=== PATIENT | male | born 1945 | race Caucasian/White ===

== ENCOUNTER → 2016-04-01 | Day surgery (SDC) | payer MEDICARE, MEDICAID ==
--- NOTE | 2016-03-26 16:40 | HP ---
DATE OF ADMISSION: 04/01/2016. AGE: 71-year-old male. ADMITTING DIAGNOSES: 1. Gross hematuria. 2. Bladder calculi. PLANNED PROCEDURE: Cystoscopy fragmentation and removal of bladder calculi, possible laser lithotripsy of bladder calculi, left retrograde, possible left ureteroscopy. SURGEON: Dr. Gomes. HISTORY OF PRESENT ILLNESS: Hugo David is a 71-year-old former smoker who had been evaluated for painless gross hematuria while he was on Brilinta. Cystoscopy revealed a markedly enlarged prostate and multiple bladder calculi. He was started on Flomax and a CT urogram was obtained. This revealed narrowing and thickening of the distal left ureter. He is now being brought in for management of the bladder calculi and further evaluation of the abnormality involving the left ureter. I did not obtain urine cytologies as I suspected that these would be abnormal secondary to the multiple bladder calculi. PAST MEDICAL HISTORY: Significant for coronary artery disease and high cholesterol. PAST SURGICAL HISTORY: Significant for a tonsillectomy. MEDICATIONS ON ADMISSION: 1. Atorvastatin 40 mg a day. 2. Aspirin 81 mg a day. ALLERGIES: No known drug allergies. SOCIAL HISTORY: He is a former smoker who quit about 40 years ago with a ten pack history of smoking prior to that. PHYSICAL EXAMINATION GENERAL: Pleasant, healthy-appearing gentleman. VITAL SIGNS: Blood pressure 140/82, pulse 65 per minute, oxygen saturation 99 percent on room air. CARDIOVASCULAR: Regular rate and rhythm. S1, S2. LUNGS: Clear bilaterally. ABDOMEN: Soft without masses. IMPRESSION: Dupbqyk-hfqfl-uzck-old gentleman with multiple bladder calculi and abnormality of the left distal ureter noted on CT scan. PLAN: Cystoscopy fragmentation and removal of bladder calculi, possible laser and for left retrograde, possible left ureteroscopy. CC: Dr. Martin Azevedo; Dr. Alyssa Finn * [id number]/[facility] #: [id number] [facility]
[~2016-04-01] MED LIST: Buffered Lidocaine 1% SYR 3ML* 3 ML/SYR SYRINGE INTRADERM ONE; Buffered Lidocaine 1% SYR 3ML* 3 ML/SYR SYRINGE ONE; Dexamethasone IV* 4 MG/ML 1 ML (4 MG) IV SLOW PU ONE; Dexamethasone IV* 4 MG/ML 1 ML (4 MG) ONE; Famotidine IV* 10 MG/ML 2 ML (20 mg) IV ONE; Famotidine IV* 10 MG/ML 2 ML (20 mg) ONE; Furosemide IV* 10 MG/ML 2 ML VIAL (20 MG) ONE; Gentamicin ADULT (*) 160 MG in NS 0.9% 100 ML* 100 ML IVPB ONE; HYDROcodone/ACETAMIN 5-325 MG* 1 TAB PO PRN; Iohexol 180 (CONTRAST) 10 ML SDV IV ONE; Lidocaine 2% JELLY* 6 ML JELLY TOPICAL ONE; Lidocaine 2% MPF* 2 ML VIAL ONE; Midazolam* 1 MG/ML 2 ML VIAL (2 MG) ONE; Ondansetron INJ* 2 MG/ML VIAL ONE; PROCHLORPERAZINE INJ 5 MG/ML 2 ML VIAL IV PRN; Phenylephrine IV* 40 MCG/ML 10 ML SYRINGE ONE; Propofol* 10 MG/ML 20 ML BTL IV PUSH ONE; cefTRIAXone(*) 2 GM ADDV.VIAL IVPB ONE; fentaNYL* 50 MCG/ML 2 ML VIAL (100 MCG VIAL) IV PRN; fentaNYL* 50 MCG/ML 2 ML VIAL (100 MCG VIAL) ONE; oxyCODONE/Acetamin 5/325 MG* TAB ONE
--- NOTE | 2016-04-01 09:13 | RAD ---
INDICATION: Bilateral retrograde pyelogram. COMPARISON: Comparison is made with a prior CT urogram from February 16, 2016. TECHNIQUE: 16 seconds of intermittent fluoroscopic guidance were provided and 23 spot films of the abdomen were obtained on both the right and left sides. FINDINGS: There is opacification of both ureters and proximal collecting systems. There are small intraluminal filling defects noted within both ureters which appear to represent air bubbles. The ureters appear smooth in outline and normal in caliber. No intraluminal filling defect is seen within the calyces. IMPRESSION: NEGATIVE EXAM. CPT II Codes: 6045F
[2016-04-01 10:55] VITALS: BP 99/72
--- NOTE | 2016-04-02 07:54 | OP ---
DATE OF OPERATION: 04/01/16 - SDS DATE OF : [birth year] - AGE: 71 years, Male. SURGEON: Jose Gomes MD ANESTHESIOLOGIST: Dr. Fritz. ANESTHESIA: General. PRE-OP DIAGNOSES: 1. Hematuria. 2. Bladder calculi. 3. Prostate enlargement. POST-OP DIAGNOSES: 1. Hematuria. 2. Bladder calculi. 3. Prostate enlargement. OPERATIVE PROCEDURES: 1. Cystoscopy. 2. Laser lithotripsy. 3. Fragmentation and removal of multiple bladder calculi. 4. Bilateral retrograde pyelogram. COMPLICATIONS: None. OPERATIVE FINDINGS: 1. Normal-appearing urethra. 2. Dkdn-lj-mezokblvln enlarged prostate, predominantly median lobe enlargement. 3. Multiple bladder calculi (2 of them fairly large, 4 cm to 5 cm each). 4. Normal bilateral retrograde pyelogram. POSTOPERATIVE CONDITION: Stable. INDICATIONS: Hugo David is a 71-year-old gentleman with a history of hematuria. He was noted to have bladder calculi. CT scan had raised an issue about incomplete visualization of the left distal ureter. He also had been complaining of some right flank pain, so the plan was changed to do bilateral retrograde pyelogram at the time of treatment of the bladder calculi. DESCRIPTION OF PROCEDURE: After induction of general anesthesia, the patient was placed in dorsal lithotomy position. Sequential compression devices were in place and functioning. Initial cystoscopy revealed a normal-appearing urethra, mild-to- moderate enlargement of the prostate, predominantly median lobe. The bladder was examined. The right and left ureteral orifices were normal in position and configuration. Right retrograde pyelogram revealed no evidence of any persistent filling defect (some small air bubbles were noted) and no evidence of obstruction. Left retrograde pyelogram also was normal and there was drainage of contrast noted from both collecting systems after the completion of the pyelograms. Next, attention was directed to the bladder calculi. There were two very large bladder calculi and one additional smaller one. Using a 1000 micron Holmium Laser Fiber, the two large calculi were fragmented with laser lithotripsy. Next , the stone crushing forceps were introduced and all of these stones were then broken up into much smaller fragments. The fragments were removed using [facility] evacuator. At the end of the procedure, there were no remaining fragments noted. There was no evidence of any injury to the bladder and a 20-Nepali Alvarez catheter was introduced without difficulty and connected to a drainage bag. The patient tolerated the procedure satisfactorily and was transferred back to recovery area in stable condition. CC: Dr. Martin Azevedo * [id number]/[facility] #: [id number] MTDD
== END | disposition home or self-care (01) ==
LOC: OR 06:23
PROVIDERS: ATTEND Urology
DX: N21.0 Calculus in bladder (principal); R31.9 Hematuria, unspecified; N40.0 Benign prostatic hyperplasia without lower urinary tract symptoms; Z87.891 Personal history of nicotine dependence; I25.10 Atherosclerotic heart disease of native coronary artery without angina pectoris; E78.5 Hyperlipidemia, unspecified
CPT/HCPCS: 74420; 82365; 88300; A9270-GY; J0696; J1100; J1580; J1940; J2250; J2405; J2704; J3010

== ENCOUNTER 2016-04-29 10:16 | Emergency (ER) | payer MEDICAID, MEDICARE ==
[2016-04-29 10:39] VITALS: BP 124/72
--- NOTE | 2016-04-29 12:19 | RAD ---
HISTORY: Cough, wheezing COMPARISONS: None VIEWS: 2: Frontal dual-energy and lateral views of the chest. FINDINGS: CARDIOMEDIASTINAL SILHOUETTE: The cardiomediastinal silhouette is normal. ASHIA: The ashia are normal. PLEURA: The costophrenic angles are sharp. No pleural abnormalities are noted. LUNG PARENCHYMA: The lungs are clear. ABDOMEN: The upper abdomen is clear. There is no subphrenic gas. BONES AND SOFT TISSUES: No bone or soft tissue abnormalities are noted. OTHER: None. IMPRESSION: NO ACTIVE CARDIOPULMONARY DISEASE.
--- NOTE | 2016-04-29 12:33 | UC ---
Respiratory Complaint HPI - HPI Summary HPI Summary: SIX DAYS OF PRODUCTIVE COUGH CHEST CONGESTION. SEEMS TO BE WORSENING WITH OCCASIONAL WHEEZES. FATIGUE. NO FEVER. NO ST. NO CHEST PAIN. NO SOB. - History of Current Complaint Chief Complaint: UCRespiratory Stated Complaint: URI Time Seen by Provider: 04/29/16 11:24 Hx Obtained From: Patient Onset/Duration: Gradual Onset, Lasting Days, Worse Since - TODAY Severity Initially: Mild Severity Currently: Moderate Character: Cough: Productive Aggravating Factors: Deep Breaths, Recumbent Position Associated Signs And Symptoms: Positive: Wheezing, URI, Nasal Congestion. Negative: Fever, Chills, Pleuritic Chest Pain, Hemoptysis, Dizziness, Calf Pain , Calf Swelling, Edema, Hoarseness, Sinus Discomfort - Allergies/Home Medications Allergies/Adverse Reactions: Allergies Allergy/AdvReac Type Severity Reaction Status Date / Time No Known Drug Allergy Allergy none Verified 04/01/16 07:05 Home Medications: Home Medications Atorvastatin* [Lipitor*] 40 mg PO DAILY 04/29/16 [History Confirmed 04/29/16] PMH/Surg Hx/FS Hx/Imm Hx Previously Healthy: Yes Endocrine History Of: Denies: Diabetes, Thyroid Disease Cardiovascular History Of: Reports: Cardiac Disorders - 2 stents placed 2010, 2014 Denies: Hypertension Respiratory History Of: Denies: COPD, Asthma GI/ History Of: Reports: Kidney Stones - pending surgery Denies: Ulcer - Surgical History Surgical History: Yes Surgery Procedure, Year, and Place: past cardiac stents, rca X 2. tonsillectomy at 10 years old. varacose vein removal at age 17 - Family History Known Family History: Negative: Respiratory Disease - Social History Occupation: Retired Lives: With Family Alcohol Use: Weekly Alcohol Amount: 2 beers a couple times a week Substance Use Type: None Smoking Status (MU): Former Smoker When Did the Patient Quit Smoking/Using Tobacco: 60 years ago - Immunization History Most Recent Influenza Vaccination: last year Most Recent Tetanus Shot: 5 years ago Most Recent Pneumonia Vaccination: 1-2 years ago Review of Systems Constitutional: Negative Skin: Negative Eyes: Negative ENT: Negative Respiratory: Cough Cardiovascular: Negative Gastrointestinal: Negative Genitourinary: Negative Motor: Negative Neurovascular: Negative Musculoskeletal: Negative Neurological: Negative Psychological: Negative All Other Systems Reviewed And Are Negative: Yes Physical Exam Triage Information Reviewed: Yes Appearance: Well-Appearing, No Pain Distress, Well-Nourished Vital Signs: Initial Vital Signs Temp 99.0 F 04/29/16 10:33 Pulse 83 04/29/16 10:33 Resp 18 04/29/16 10:33 BP 124/72 04/29/16 10:33 Pulse Ox 100 04/29/16 10:33 Vital Signs Reviewed: Yes Eye Exam: Normal Eyes: Positive: Conjunctiva Clear ENT: Positive: Hearing grossly normal, Pharynx normal, TM dull Dental Exam: Normal Neck exam: Normal Neck: Positive: Supple, Nontender, No Lymphadenopathy Respiratory: Positive: Chest non-tender, No respiratory distress, No accessory muscle use, Wheezing - SCANT. Negative: Respiratory distress, Decreased breath sounds Cardiovascular Exam: Normal Cardiovascular: Positive: RRR, No Murmur, Pulses Normal, Brisk Capillary Refill Abdominal Exam: Normal Abdomen Description: Positive: Nontender, No Organomegaly Musculoskeletal Exam: Normal Musculoskeletal: Positive: Strength Intact, ROM Intact, No Edema Neurological Exam: Normal Psychological Exam: Normal Skin Exam: Normal UC Diagnostic Evaluation - Laboratory O2 Sat by Pulse Oximetry: 100 Respiratory Course/Dx - Differential Dx/Diagnosis Differential Diagnosis/HQI/PQRI: Laryngitis, Sinusitis, Tuberculosis Provider Diagnoses: BRONCHITIS WITH BRONCHOSPASM Discharge - Discharge Plan Condition: Stable Disposition: HOME Prescriptions: Albuterol HFA INHALER* [Ventolin HFA Inhaler*] 1 - 2 puff INH Q6H PRN #1 mdi PRN Reason: Wheezing Azithromycin TAB* [Zithromax TAB (Z-YO) 250 mg #6 tabs] 250 mg PO DAILY #6 tab Patient Education Materials: Acute Bronchitis (ED), Bronchospasm (ED) Referrals: [facility] [Outside] No Primary Care Phys,NOPCP [Primary Care Provider] -
== END 2016-04-29 12:46 | disposition home or self-care (01) ==
LOC: UCEAST 10:16
DX: J20.9 Acute bronchitis, unspecified (principal); Z87.891 Personal history of nicotine dependence
CPT/HCPCS: 71020; 99212; G0463

== ENCOUNTER 2016-11-06 10:56 | Observation (INO) | payer MEDICARE, MEDICAID ==
[2016-11-06 11:46] LABS: Hematocrit 42 % (42-52); Hemoglobin 14.4 g/dl (14.0-18.0); Mean Corpuscular HGB Conc 34 g/dl (31-36); Mean Corpuscular Hemoglobin 32 pg (27-31); Mean Corpuscular Volume 93 fL (80-94); Mean Platelet Volume 8 um3 (7.4-10.4); Red Blood Count 4.52 10^6/ul (4.0-5.4); Red Cell Distribution Width 13 % (10.5-15); White Blood Count 5.2 10^3/ul (3.5-10.8)
[2016-11-06 11:53] LABS: Ammonia 44 mol/L (16-53)
[2016-11-06 11:57] LABS: ALT 23 U/L (7-52); AST 22 U/L (13-39); Albumin 3.8 g/dL (3.2-5.2); Alkaline Phosphatase 71 U/L (34-104); Anion Gap 5 mmol/L (2-11); BUN/Creatinine Ratio 22.5 (8-20); Blood Urea Nitrogen 16 mg/dL (6-24); C Reactive Protein < 1.00 mg/L (< 5.00); CO2 Carbon Dioxide 25 mmol/L (22-32); Chloride 106 mmol/L (101-111); Creatine Kinase 92 U/L (10-223); EGFR African American 139.9 (>60); EGFR Non-African American 108.8 (>60); Globulin 3.5 g/dL (2-4); Glucose 145 mg/dL (70-100); Lipase 29 U/L (11.0-82.0); Sodium 136 mmol/L (133-145); Total Protein 7.3 g/dL (6.4-8.9)
[2016-11-06 11:59] LABS: B Type Natriuretic Peptide 69 pg/mL
--- NOTE | 2016-11-06 12:01 | RAD ---
HISTORY: Slurred speech COMPARISONS: April 29, 2016 VIEWS:1: Single frontal portable view of the chest at 11:38 AM FINDINGS: LINES AND TUBES: None. CARDIOMEDIASTINAL SILHOUETTE: The cardiomediastinal silhouette is normal for portable technique. PLEURA: The costophrenic angles are sharp. No pleural abnormalities are noted. LUNG PARENCHYMA: There is hyperinflation. ABDOMEN: The upper abdomen is clear. There is no subphrenic gas. BONES AND SOFT TISSUES: No bone or soft tissue abnormalities are noted. IMPRESSION: HYPERINFLATION. NO ACTIVE CARDIOPULMONARY DISEASE.
[2016-11-06 12:03] LABS: TSH (Thyroid Stimulating Horm) 1.08 mcIU/mL (0.34-5.60)
[2016-11-06] MEDS: NS 0.9% 1000 ML* 1,000 ML IV SCH ×2 (12:26→19:16)
--- NOTE | 2016-11-06 12:40 | RAD ---
HISTORY: Slurred speech, off balance COMPARISONS: None TECHNIQUE: Multiple contiguous axial CT scans were obtained of the head without intravenous contrast. FINDINGS: HEMORRHAGE/INFARCT: There is no hemorrhage or acute infarct. MASSES/SHIFT: There is no mass or shift. EXTRA-AXIAL SPACES: There are no extra-axial fluid collections. SULCI AND VENTRICLES: The sulci and ventricles are normal in size and position for the patient's stated age. CEREBRUM: There are no focal parenchymal abnormalities. BRAINSTEM: There are no focal parenchymal abnormalities. CEREBELLUM: There are no focal parenchymal abnormalities. VESSELS: The vessels are grossly normal. PARANASAL SINUSES: The paranasal sinuses are clear. ORBITS: The orbits are unremarkable. BONES AND SOFT TISSUE: No bone or soft tissue abnormalities are noted. OTHER: None IMPRESSION: NO ACUTE INTRACRANIAL PATHOLOGY.
[2016-11-06 13:36] LABS: Urine Bilirubin Negative (Negative); Urine Glucose Negative (Negative); Urine Nitrite Negative (Negative)
[2016-11-06] MEDS ORDERED: Gadoteridol* (CONTRAST) 279.3 MG/ML 10 ML IV ONE (15:24)
--- NOTE | 2016-11-06 16:18 | RAD ---
Indication: Dysarthria, spastic slurred speech. Image sequences: Sagittal and axial T1, axial T2, FLAIR, diffusion and susceptibility weighted images of the brain were obtained. 15 mL of ProHance was injected and postcontrast sagittal, axial and coronal T1-weighted images were repeated. Ventricular structures are midline. No midline shift is noted. The extra-axial spaces are unremarkable. Diffusion-weighted images demonstrates no restriction of diffusion. The FLAIR images demonstrates no definite vasogenic edema. Cerebellopontine angles are unremarkable. No abnormally enhancing masses are noted. Susceptibility weighted images demonstrates no evidence of susceptibility artifact. No abnormally enhancing lesions are identified. The orbits, optic chiasm, posterior fossa and sella turcica are grossly unremarkable. IMPRESSION: No restriction of diffusion. No abnormally enhancing lesions are identified.
[2016-11-06] MEDS ORDERED: Acetaminophen TAB* 325 MG PO PRN (17:37)
--- NOTE | 2016-11-06 17:38 | CONS ---
NEUROLOGY CONSULTATION: DATE OF CONSULTATION: 11/06/16 REFERRING PHYSICIAN: Mike Wolfe MD PRIMARY CARE PROVIDER: Channing Carmona MD LOCATION: He is in the emergency room. CHIEF COMPLAINT: Slurred speech, dizziness, difficulty walking. HISTORY OF PRESENT ILLNESS: Hugo David is a 71-year-old right-handed man who was ill last April with a possible sinus infection with a headache and a fever. That was treated and it resolved. Since that time, he has noted that his speech is slurred. It is gradually worsened over the months and particularly over the last 2 to 4 weeks. He is accompanied by his friend, Lara , who provides additional history. He started to feel "dizzy" perhaps a couple of months ago, but certainly by 1 month ago. If he would note if he would lie in his left side, he feels like he is falling. If he moved his head, he feels like things were mildly spinning. He has not had any falls. He finds his gait is deteriorated particularly in the last 2 to 4 weeks. He feels unsteady on his feet. He has noted with specific question occasionally difficulty swallowing. He has not had any choking spells or falls. He does not have any headache, neck pain, or pain in his limbs other than stiffness in his hands. He does not note any numbness or tingling in his limbs or face. He has not had an intestinal problems or change in weight. He has not noticed any muscle cramps. He notes a little bit of tingling in the back of his thighs and his hamstrings. He feels extremely tired. He feels that he needs more sleep. He has not had any change in his vision, specifically no double vision. PAST MEDICAL HISTORY: His past medical history is notable for coronary artery disease requiring stent in 2015. He has had bladder stones, which were surgically removed earlier this year before he had the febrile illness. He has a history of gout, which was treated in the past. MEDICATIONS: At home consisted of: 1. Several supplements including vitamin B complex and vitamin B12. 2. Aspirin 81 mg p.o. daily. 3. Zinc 50 mg p.o. daily. 4. Niacin 500 mg p.o. daily. 5. Atorvastatin 40 mg p.o. daily. ALLERGIES: He does not have any allergies to medications. 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 He does not smoke. He drinks about 3 beers per week, but less in the last month or so. FAMILY HISTORY: Notable for longevity in his parents. Neither one had any problems with tremor or ataxia or other neurodegenerative disorders. His siblings also are apparently pretty healthy as best as he knows. PHYSICAL EXAMINATION: He is well nourished and well hydrated. Temperature is 98.1 temporally, blood pressure running about 110/70, heart rate is in the 60s and high 50s on the monitor, sinus. Respiratory rate is 14 and oxygen saturation is 98% on room air. Lungs are clear to auscultation. Heart is in a regular rate and rhythm without murmurs. Carotid pulses are intact and there are no anterior, posterior, cervical bruits. There is no thyromegaly to palpation. On neurologic exam, pupils react equally from 4 to 2.5 mm. Eye movements are normal, no nystagmus. Funduscopic exam revealed sharp discs bilaterally and no abnormalities noted. There is no ptosis. Visual corral are full to confrontation. Facial musculature is symmetric, perhaps with slightly decreased eye blink. Palate and tongue are notable for some tongue fasciculations seen after movement, but not persistently. Tongue protrudes in the midline. He has moderate mainly lingual dysarthria. Palate rises symmetrically and gag response is brisk. Facial sensation to light touch is reported as less on the left side but facial sensation to pin is reported as symmetric on both sides. Hearing is intact to tuning fork and Leon test lateralizes to the left. There is a little bit of cerumen in each ear canal, but neither one are occluded. Neck muscle bulk and strength is normal. Motor exam reveals increased muscle tone in the left leg and to a lesser extent the right. There is also mild increased muscle tone in the forearms, worse on the left. There is no cogwheeling. Strength is limited in the right shoulder because of an old rotator cuff injury, but otherwise he has normal strength proximally and distally in the upper extremities. There is no scapular winging. In the lower extremities, he has grade 4 to 4+ right hip flexor weakness. He has normal strength in the lower extremities otherwise. On sensory exam, there is diminished light touch in the toes. There is diminished vibration in the toes bilaterally, worse on the left. Proprioceptive sensation is diminished on the left great toe, but not the right. Pin discrimination is normal at all limbs. Reflexes of biceps 3/2, brachioradialis 3/2, knees 3/3, there are crossed adductor responses bilaterally. Ankle reflexes are trace bilaterally and plantar responses are flexor bilaterally. Finger taps are slow and clumsy in the right hand. Finger taps seemed normal on the left. Ctra-wu-ehpt is clumsy in the right. Sepg-vt-pgvj is a little bit clumsy on the left but not clearly abnormally so. Gait is stiff legged. He takes multiple steps to turn. He ambulates independently. LABORATORY DATA/DIAGNOSTIC STUDIES: Includes a CT of the brain interpreted as normal. I have reviewed the images and I agree. Other laboratory studies notable for normal CBC, normal INR and PTT, normal chemistry profile other than a nonfasting glucose of 145. He had an ammonia level drawn this admission normal at 44, creatine kinase normal at 92. He had labs drawn on 10/30/[address] Carmona notable for normal vitamin B12 at 414, folate greater than 20, TSH 1.08. Lyme disease serology negative on 10/30/16. Urinalysis is unremarkable. IMPRESSION: Mr. David presents with mainly upper neuron findings but he also describes some vestibular symptoms and he has evidence of some weakness on exam as well. His right hip flexor seems weak and his right shoulder is weak, but that is associated with an old rotator cuff tear. He has very brisk reflexes diffusely, but plantars are flexor. He has some sensory loss in his feet, but may be diabetic since he has had multiple elevated blood sugars in prior lab studies in the computer. He needs an MRI of his brain with and without contrast to look for meningeal carcinomatosis or other posterior fossa lesions. He needs some additional blood work to include JAMES and serum protein electrophoresis. If the MRI of the brain is negative, he probably can be discharged home for further outpatient workup. If it does show meningeal abnormalities then a spinal tap for cytology should be done. Further recommendations depend upon the results of the studies. [id number]/[facility] #: [id number] [facility]
[2016-11-06 18:53] LABS: Free T3 2.9 pg/mL (2.5-3.9)
[2016-11-06 18:56] LABS: Free T4 0.74 ng/dL (0.61-1.12)
[2016-11-06] MEDS: Senna TAB PO SCH (20:45)
[2016-11-07] MEDS: Senna TAB PO SCH (08:31)
[2016-11-07 11:48] LABS: CSF Glucose 84 mg/dL (40-70)
[2016-11-07 12:01] LABS: BF RBC Count #1 0; BF RBC Count #2 0; BF WBC Count #1 1; BF WBC Count #2 1; Body Fluid Appearance Clear; Body Fluid WBC 1 /mcL; RBC counts within 6%? Yes; WBC counts within 15%? Yes
[2016-11-07 12:50] LABS: Body Fluid Total Cells Counted 20
--- NOTE | 2016-11-07 14:53 | CONS ---
NEUROLOGY FOLLOWUP NOTE: DATE OF FOLLOWUP: 11/07/16 LOCATION: He is an inpatient in room 453. HOSPITALIST: Dr. Rosen CHIEF COMPLAINT: Slurred speech, weakness. INTERVAL HISTORY: Since yesterday, Mr. David feels the same. He had a lumbar puncture earlier today. Results back so far include cell counts with 1 white cell and 0 red cells with 50% lymphocytes and 50% monocytes on differential. Glucose is elevated at 84 and protein is elevated at 58. Medications were reviewed and he is on acetaminophen and Senokot. Not on any other medications. He has been afebrile throughout his stay. Oxygen saturations have remained in excess of 95% and blood pressures running 120/70. On exam, he has a mild spastic catch in both legs. He has good strength other than mild right hip flexor weakness in the grade 4+ range. Speech remains dysarthric. EMG nerve conduction testing was done today and reveals a mild sensorimotor polyneuropathy. There is also some chronic denervation in the left L4 distribution, but no signs of recent denervation nor other features suggestive of motor neuron disease. Other laboratory data recently include a normal free T4 and free T3, CRP normal at less than 1, sedimentation rate 12. Thyroid peroxidase antibodies are negative. There are numerous other tests pending. I am not sure of the etiology of Mr. David's dysarthria, but I am concerned he may have early motor neuron disease. He has a number of blood tests and spinal fluid tests pending including paraneoplastic antibodies and connective tissue disorders. I would like to get an MRI of his cervical spine before we discharge him home today and then ultimately follow up in my office. If the etiology remains unclear, at that point, I may consider referal to the neuromuscular unit at [facility]. [id number]/[facility] #: [id number] NIKA
--- NOTE | 2016-11-07 15:16 | RAD ---
HISTORY: Slurred speech, dizziness loss of balance COMPARISONS: None TECHNIQUE: The following sequences were obtained of the cervical spine: Sagittal T1- and T2-weighted images, sagittal STIR images, axial T2 and gradient echo images. FINDINGS: BRAIN AND SPINAL CORD: The visualized spinal cord is normal in caliber, position, and signal intensity. The visualized portion of the brain is unremarkable. The cerebellar tonsils are normal in position. ALIGNMENT: There is straightening of the normal cervical lordosis. The alignment is otherwise normal. VERTEBRAL BODIES: There is multilevel anterolateral marginal osteophyte formation. JOINTS: There is diffuse uncovertebral and facet osteoarthritic change MUSCULATURE: Normal INTERVERTEBRAL DISCS: There is diffuse loss of intervertebral disc height and T2 signal throughout the spine. AXIAL IMAGES: C2-C3: There is bilateral uncovertebral and facet hypertrophy. There is moderate to severe bilateral neural foraminal narrowing. There is no significant central canal stenosis. C3-C4: There is bilateral uncovertebral and facet hypertrophy. There is severe left and moderate right neural foraminal narrowing. There is mild narrowing of central canal. C4-C5: There is bilateral uncovertebral and facet hypertrophy. There is severe bilateral neural foraminal narrowing. There is mild narrowing of the central canal. C5-C6: There is bilateral uncovertebral and facet hypertrophy. There is severe bilateral neural foraminal narrowing. There is mild narrowing of central canal. C6-C7: There is a broad-based discussed effect complex with bilateral uncovertebral and facet hypertrophy. There is severe bilateral neural foraminal narrowing. There is moderate narrowing of the central canal. C7-T1: There is bilateral facet hypertrophy. There is moderate bilateral neural foraminal narrowing. SOFT TISSUES: The visualized soft tissues of the neck are unremarkable. OTHER: None. IMPRESSION: 1. DEGENERATIVE DISC DISEASE AND OSTEOARTHRITIS. 2. THERE IS MODERATE NARROWING OF THE CENTRAL CANAL AT C6-C7 WITH MILD NARROWING AT C3-C4, C4-C5, AND C5-C6. 3. THERE IS MULTILEVEL NEURAL FORAMINAL NARROWING DESCRIBED ABOVE.
[2016-11-07 15:36] LABS: Albumin 3.3 g/dL (3.4-4.7); Gamma Globulin 1.9 g/dL (0.6-1.6)
[2016-11-07 15:50] VITALS: BP 117/69
--- NOTE | 2016-11-07 23:10 | PN ---
Hospitalist Progress Note . HOSPITALIST DISCHARGE NOTE: See dc instructions and summary by me. Patient stable for dc dc instructions reviewed with the patient at the bedside. DC patient home today.
--- NOTE | 2016-11-08 06:51 | HP ---
HISTORY AND PHYSICAL AND DISCHARGE SUMMARY: DATE OF ADMISSION: 11/06/16 DATE OF DISCHARGE: 11/07/16 CHIEF COMPLAINT: Slurred speech/dizziness/difficulty walking. HISTORY OF PRESENT ILLNESS: Mr. David is a 71-year-old gentleman, who had a sinus infection with headache and fever in the winter that resolved. Since that time, he explains his speech has not been normal. He states it is slurred. It has gotten worse over several weeks and specifically in the past 2 weeks. He is accompanied by a close friend, who provides history corroborating his statements. The patient felt dizziness and lightheadedness approximately 1 to 2 months ago. The patient would feel like he is falling almost like a vertiginous sensation. The patient has never fallen because of this. He is certainly steady on his feet. The patient denies any numbness or tingling in his limbs. He was told that he might have borderline diabetes many years ago. He has been sleeping more than usual. There have been no visual symptoms. The patient was seen by Dr. Robbin Freitas in the emergency room and recommended for admission for MRI monitoring and a rapid workup considering some of the possibilities in the differential diagnosis including a motor neuron disease. The MRI brain in the emergency room was unrevealing of a stroke and his brain CT and CTA did not show any specific abnormalities. He is referred for admission for both an EMG and image-guided LP under sedation. OUTPATIENT MEDICATIONS: 1. Vitamin supplements. 2. Aspirin. 3. Zinc. 4. Niacin. 5. Atorvastatin. ALLERGIES: No known drug allergies. FAMILY HISTORY: No remarkable family history with parents who lived into old age and no history of neurologic disorders in his siblings or parents. 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 He drinks approximately 3 beers per week but not recently and never in much excess of this. He is single. His next of kin is Chirag David, his son who is at . He has a second son, Surinder David, who could be reached at [phone]. The patient is a nonsmoker. PHYSICAL EXAMINATION ON ADMISSION GENERAL: Well-dressed, well-nourished gentleman, in no apparent distress. He is awake, alert, and oriented x3, and answering questions appropriately. VITAL SIGNS: Temperature 97.3 degrees Fahrenheit, pulse 73, respirations 16, oxygen saturation 96% on room air, blood pressure 130/85. HEENT: Oropharynx is clear. Mucous membranes are moist. NECK: Carotid pulses are intact. No anterior bruits appreciated. Normal thyroid. CHEST: Clear breath sounds anteriorly, posteriorly. HEART: Regular rate and rhythm. No murmurs, rubs, or gallops. ABDOMEN: Soft, nontender. EXTREMITIES: Without clubbing, cyanosis, or edema. NEURO: Normal pupils and cranial nerves are normal. Upper and lower muscle bulk in his extremity. He does not have any cranial nerve abnormalities or abnormal facies or facial asymmetry. His extremities seem generally strong, I did not walk him. He has normal gross sensation. His reflexes are normal at the knees and ankles. SKIN: Dry and intact. No rashes, lesions, or breakdown. DIAGNOSTIC STUDIES/LAB DATA: Admission data: White blood cell count 5.2, hemoglobin 14.4, platelets 205. Blood chemistry is normal except for a mildly elevated DPL-lo-sbezbhpuax ratio of 22.5 and a glucose of 145. His hemoglobin A1c is 6.6 (mildly elevated.) LFTs are normal. CK-MB and troponin are normal. CRP is less than 1. Protein levels are preserved with an albumin of 3.8 and a total protein of 7. He has an array of labs that were ordered by the Neurology consultation. I will defer to Dr. Freitas to articulate those but his TSH was 1.08. Free thyroid (T4 and T3 are normal). Urinalysis is unremarkable. IMPRESSION: Mr. David is a gentleman with chronically progressive dysarthria and general weakness given primarily upper neuron findings and also vestibular symptoms. He requires an MRI of his brain with and without contrast to detect meningeal carcinomatosis or other explanatory entities. The patient's blood work is sent for an array of studies directed by the Neurology consultation. The patient is awaiting a spinal tap for cytology as well as an EMG both of which were requested through the Neurology consultation. He will be admitted to the hospitalist service and these studies will be arranged on 11/07/16. DISCHARGE SUMMARY: HISTORY OF PRESENT ILLNESS AND HOSPITAL COURSE: Please see the details above, but in brief Mr. David had no difficulties overnight and proceeded with an MRI of cervical spine as well as an EMG as well as the image-guided LP. His LP did not show any significant abnormalities with only 1 white blood cell detected and modestly elevated total protein 58 of unclear significance as well as CSF glucose of 84. In terms of the MRI cervical spine, there were no pertinent findings other than general DJD and osteoarthritis and moderate narrowing of the central canal at C5-C7 with mild narrowing at other levels and there were multilevel neural foraminal narrowing as described above. Mr. David is being discharged for Neurology followup with Dr. Freitas. His discharge medication regimen is unchanged. He is discharged in stable condition. TIME SPENT: Total time taken to admit Mr. David on 11/06/16 was 45 minutes and the total time taken for discharge on 11/07/16 was 30 minutes, greater than half that time spent at bedside explaining the plan of care for the history and the discharge instructions for the discharge. CONDITION AT DISCHARGE: Stable. [id number]/[facility] #: [id number] MTDD
[2016-11-08 14:00] LABS: Thyroglobulin Antibody <1.8 IU/mL (<4.0)
[2016-11-08 14:50] LABS: Albumin 3630 mg/dL; CSF Albumin 22.9 mg/dL (<=27.0); CSF IgG/Albumin Ratio 0.26 (<=0.21); CSF Immunoglobulin G Synthesis 0.35 mg/24 h (<=12); Immunoglobulin G 1880 mg/dL (767 - 1590); Serum IgG/Albumin Ratio 0.52 (<=0.40)
[2016-11-08 16:15] LABS: CSF VDRL Negative (Negative)
[2016-11-08 21:53] LABS: Tissue Transglutaminase IgA Ab <1.2 U/mL
[2016-11-08 22:13] LABS: Immunoglobulin A 159 mg/dL (61 - 356)
--- NOTE | 2016-11-09 22:19 | ED ---
Angélica Durham Alfonso, scribed for Mike Wolfe MD on 11/06/16 at 1118 . Complex/Multi-Sys Presentation - HPI Summary HPI Summary: This patient is a 71 year old M [facility] accompanied by female with a chief complaint of dizziness since one month ago. The patient rates the pain 0 /10 in severity. Symptoms aggravated by nothing. Symptoms alleviated by nothing. Patient reports speech slurring (gradually worse), sleeping more, memory loss, balance loss (gradually worse), generalized weakness, and headache (shinto pressure aggravated by nothing). Patient denies ear ache, rhinorrhea, diarrhea, and vision changes. He reports an ear infection approximately 5 months ago after which his health gradually declined. PMHx includes CAD. Medications reviewed. - History Of Current Complaint Chief Complaint: EDNeurologicalDeficit Time Seen by Provider: 11/06/16 11:11 Hx Obtained From: Patient Onset/Duration: Sudden Onset, Lasting Weeks - 1 Month, Still Present Timing: Constant Severity Currently: Moderate Severity Initially: Moderate Aggravating Factor(s): Nothing Alleviating Factor(s): Nothing Associated Signs And Symptoms: Positive: Other - Patient reports speech slurring (gradually worse), sleeping more, memory loss, balance loss (gradually worse), generalized weakness, and headache (shinto pressure aggravated by nothing). Patient denies ear ache, rhinorrhea, diarrhea, and vision changes. Related History: Recent Illness - He reports an ear infection approximately 5 months ago after which his health gradually declined. - Allergies/Home Medications Allergies/Adverse Reactions: Allergies Allergy/AdvReac Type Severity Reaction Status Date / Time No Known Drug Allergy Allergy none Verified 11/06/16 10:57 Home Medications: Home Medications Cyanocobalamin TAB* [Vitamin B12 TAB*] 500 mcg PO DAILY 11/06/16 [History Confirmed 11/06/16] Multivitamins/Minerals TAB* [Theragran/minerals TAB*] 1 tab PO DAILY 11/06/16 [ History Confirmed 11/06/16] Vitamin B Complex TAB* [Complex B-100*] 1 tab PO DAILY 11/06/16 [History Confirmed 11/06/16] PMH/Surg Hx/FS Hx/Imm Hx Endocrine/Hematology History: Reports: Hx Unexplained Bleeding - states occasional blood in stool Denies: Hx Diabetes, Hx Thyroid Disease Cardiovascular History: Reports: Hx Coronary Artery Disease - 2 cardiac stents Denies: Hx Hypertension Respiratory History: Denies: Hx Asthma, Hx Chronic Obstructive Pulmonary Disease (COPD) GI History: Denies: Hx Ulcer History: Reports: Hx Kidney Stones - pending surgery Musculoskeletal History: Reports: Hx Arthritis, Hx Back Problems Sensory History: Denies: Hx Contacts or Glasses, Hx Hearing Aid Opthamlomology History: Denies: Hx Contacts or Glasses - Surgical History Surgery Procedure, Year, and Place: past cardiac stents, rca X 2. tonsillectomy at 10 years old. varacose vein removal at age 17 Hx Anesthesia Reactions: No Infectious Disease History: Denies: Hx Hepatitis, Hx Human Immunodeficiency Virus (HIV), Traveled Outside the [place] in Last 30 Days - Family History Known Family History: Negative: Respiratory Disease - Social History Alcohol Use: Weekly Alcohol Amount: 2 beers a couple times a week Substance Use Type: Reports: None Smoking Status (MU): Former Smoker Review of Systems Positive: Other - Negative vision changes Positive: Other - Negative rhinorrhea. Negative: Ear Ache Negative: Diarrhea Neurological: Other - Dizziness, speech slurring (gradually worse), sleeping more, memory loss, balance loss (gradually worse), generalized weakness, and headache (shinto pressure aggravated by nothing) All Other Systems Reviewed And Are Negative: Yes Physical Exam Triage Information Reviewed: Yes Vital Signs On Initial Exam: Initial Vitals Temp Pulse Resp BP Pulse Ox 97.3 F 73 16 131/85 96 11/06/16 10:57 11/06/16 10:57 11/06/16 10:57 11/06/16 10:57 11/06/16 10:57 Vital Signs Reviewed: Yes Appearance: Positive: Well-Appearing, No Pain Distress Skin: Positive: Warm, Skin Color Reflects Adequate Perfusion, Dry Head/Face: Positive: Normal Head/Face Inspection Eyes: Positive: EOMI, JARRELL ENT: Positive: Normal ENT inspection Neck: Positive: Supple, Nontender Cardiovascular: Positive: RRR Abdomen Description: Positive: Nontender, Soft Bowel Sounds: Positive: Present Musculoskeletal: Positive: Normal, Strength/ROM Intact Neurological: Positive: Sensory/Motor Intact, Alert, Oriented to Person Place, Time, Other - Speech slow. Slightly slurred speech. Finger to nose is slow and deliberate. Psychiatric: Positive: Affect/Mood Appropriate - [place] Coma Scale Best Eye Response: 4 - Spontaneous Best Motor Response: 6 - Obeys Commands Best Verbal Response: 5 - Oriented Diagnostics - Vital Signs Vital Signs Temp Pulse Resp BP Pulse Ox 11/06/16 10:57 97.3 F 73 16 131/85 96 - Laboratory Lab Results: Lab Results 11/06/16 11/06/16 11/06/16 Range/Units 10:48 10:48 11:17 WBC (3.5-10.8) 10^3/ul RBC (4.0-5.4) 10^6/ul Hgb (14.0-18.0) g/dl Hct (42-52) % MCV (80-94) fL MCH (27-31) pg MCHC (31-36) g/dl RDW (10.5-15) % Plt Count (150-450) 10^3/ul MPV (7.4-10.4) um3 Neut % (Auto) (38-83) % Lymph % (Auto) (25-47) % Allen % (Auto) (1-9) % Eos % (Auto) (0-6) % Baso % (Auto) (0-2) % Absolute Neuts (auto) (1.5-7.7) 10^3/ul Absolute Lymphs (auto) (1.0-4.8) 10^3/ul Absolute Monos (auto) (0-0.8) 10^3/ul Absolute Eos (auto) (0-0.6) 10^3/ul Absolute Basos (auto) (0-0.2) 10^3/ul Absolute Nucleated RBC 10^3/ul Nucleated RBC % ESR (0-40) mm/Hr INR (Anticoag Therapy) 1.02 (0.89-1.11) APTT 27.2 (26.0-36.3) seconds Sodium (133-145) mmol/L Potassium (3.5-5.0) mmol/L Chloride (101-111) mmol/L Carbon Dioxide (22-32) mmol/L Anion Gap (2-11) mmol/L BUN (6-24) mg/dL Creatinine (0.67-1.17) mg/dL Est GFR ( Amer) (>60) Est GFR (Non-Af Amer) (>60) BUN/Creatinine Ratio (8-20) Glucose (70-100) mg/dL Hemoglobin A1c (Less than 6.0) % Calcium (8.6-10.3) mg/dL Magnesium (1.9-2.7) mg/dL Total Bilirubin (0.2-1.0) mg/dL AST (13-39) U/L ALT (7-52) U/L Alkaline Phosphatase (34-104) U/L Ammonia (16-53) mol/L Total Creatine Kinase (10-223) U/L CK-MB (CK-2) (0.6-6.3) ng/mL Myoglobin (17.4-105.7) ng/mL Troponin I (<0.04) ng/mL C-Reactive Protein (< 5.00) mg/L B-Natriuretic Peptide ( - 100) pg/mL Total Protein (6.4-8.9) g/dL Total Protein (PEP) (6.3 - 7.9) g/dL Albumin (3.2-5.2) g/dL Albumin (PEP) (3.4-4.7) g/dL Globulin (2-4) g/dL Albumin/Globulin Ratio (1-3) Albumin/Globulin (PEP) Xhkjr-4-Tbilmdulk (0.1-0.3) g/dL Mctuh-0-Fbvxbghha (0.6-1.0) g/dL Olvo-9-Gmhlydrw (0.7-1.2) g/dL Gamma Globulins (0.6-1.6) g/dL M-Lukasz 2 g/dL PEP Impression Lipase (11.0-82.0) U/L TSH (0.34-5.60) mcIU/mL Urine Color Urine Appearance Urine pH (5-9) Ur Specific [place] (1.010-1.030) Urine Protein (Negative) Urine Ketones (Negative) Urine Blood (Negative) Urine Nitrate (Negative) Urine Bilirubin (Negative) Urine Urobilinogen (Negative) Ur Leukocyte Esterase (Negative) Urine Glucose (Negative) Urine Ascorbic Acid (Negative) Fluid Source Cerebral spinal Fluid Volume 2 mL Fluid Color Colorless Fluid Appearance Clear Fluid WBC 1 /mcL Fluid RBC 0 /mcL Fluid Tot Cell Count 20 Fluid Neutrophils Not Reportable Fluid Lymphocytes 50 % Fluid Monocytes 50 % Fluid Cell Count Rvw By CSF Cell Count Tube # 4 CSF Glucose 84 H (40-70) mg/dL CSF Total Protein 58 H (15-45) mg/dL CSF Albumin (<=27.0) mg/dL CSF IgG (<=8.1) mg/dL Serum IgG/Albumin (<=0.40) CSF IgG/Albumin (<=0.21) CSF IgG Index (<=0.85) CSF IgG Synthesis Rate (<=12) mg/24 h CSF VDRL (Negative) IgG (767 - 1590) mg/dL Serum Immunofixation Anti-Nuclear Antibody U 11/06/16 11/06/16 11/06/16 Range/Units 11:17 11:17 11:17 WBC 5.2 (3.5-10.8) 10^3/ul RBC 4.52 (4.0-5.4) 10^6/ul Hgb 14.4 (14.0-18.0) g/dl Hct 42 (42-52) % MCV 93 (80-94) fL MCH 32 H (27-31) pg MCHC 34 (31-36) g/dl RDW 13 (10.5-15) % Plt Count 205 (150-450) 10^3/ul MPV 8 (7.4-10.4) um3 Neut % (Auto) 64.5 (38-83) % Lymph % (Auto) 24.5 L (25-47) % Allen % (Auto) 8.9 (1-9) % Eos % (Auto) 1.6 (0-6) % Baso % (Auto) 0.5 (0-2) % Absolute Neuts (auto) 3.4 (1.5-7.7) 10^3/ul Absolute Lymphs (auto) 1.3 (1.0-4.8) 10^3/ul Absolute Monos (auto) 0.5 (0-0.8) 10^3/ul Absolute Eos (auto) 0.1 (0-0.6) 10^3/ul Absolute Basos (auto) 0 (0-0.2) 10^3/ul Absolute Nucleated RBC 0 10^3/ul Nucleated RBC % 0.1 ESR (0-40) mm/Hr INR (Anticoag Therapy) (0.89-1.11) APTT (26.0-36.3) seconds Sodium 136 (133-145) mmol/L Potassium 4.0 (3.5-5.0) mmol/L Chloride 106 (101-111) mmol/L Carbon Dioxide 25 (22-32) mmol/L Anion Gap 5 (2-11) mmol/L BUN 16 (6-24) mg/dL Creatinine 0.71 (0.67-1.17) mg/dL Est GFR ( Amer) 139.9 (>60) Est GFR (Non-Af Amer) 108.8 (>60) BUN/Creatinine Ratio 22.5 H (8-20) Glucose 145 H (70-100) mg/dL Hemoglobin A1c (Less than 6.0) % Calcium 9.0 (8.6-10.3) mg/dL Magnesium 2.0 (1.9-2.7) mg/dL Total Bilirubin 1.00 (0.2-1.0) mg/dL AST 22 (13-39) U/L ALT 23 (7-52) U/L Alkaline Phosphatase 71 (34-104) U/L Ammonia 44 (16-53) mol/L Total Creatine Kinase 92 (10-223) U/L CK-MB (CK-2) 3.8 (0.6-6.3) ng/mL Myoglobin 41.1 (17.4-105.7) ng/mL Troponin I 0.00 (<0.04) ng/mL C-Reactive Protein < 1.00 (< 5.00) mg/L B-Natriuretic Peptide 69 ( - 100) pg/mL Total Protein 7.3 (6.4-8.9) g/dL Total Protein (PEP) (6.3 - 7.9) g/dL Albumin 3.8 (3.2-5.2) g/dL Albumin (PEP) (3.4-4.7) g/dL Globulin 3.5 (2-4) g/dL Albumin/Globulin Ratio 1.1 (1-3) Albumin/Globulin (PEP) Yxsko-9-Omezmgyfm (0.1-0.3) g/dL Aivzo-5-Ojjjfsmhd (0.6-1.0) g/dL Terw-8-Hcxtoxvh (0.7-1.2) g/dL Gamma Globulins (0.6-1.6) g/dL M-Lukasz 2 g/dL PEP Impression Lipase 29 (11.0-82.0) U/L TSH 1.08 (0.34-5.60) mcIU/mL Urine Color Urine Appearance Urine pH (5-9) Ur Specific [place] (1.010-1.030) Urine Protein (Negative) Urine Ketones (Negative) Urine Blood (Negative) Urine Nitrate (Negative) Urine Bilirubin (Negative) Urine Urobilinogen (Negative) Ur Leukocyte Esterase (Negative) Urine Glucose (Negative) Urine Ascorbic Acid (Negative) Fluid Source Fluid Volume mL Fluid Color Fluid Appearance Fluid WBC /mcL Fluid RBC /mcL Fluid Tot Cell Count Fluid Neutrophils Fluid Lymphocytes % Fluid Monocytes % Fluid Cell Count Rvw By CSF Cell Count Tube # CSF Glucose (40-70) mg/dL CSF Total Protein (15-45) mg/dL CSF Albumin (<=27.0) mg/dL CSF IgG (<=8.1) mg/dL Serum IgG/Albumin (<=0.40) CSF IgG/Albumin (<=0.21) CSF IgG Index (<=0.85) CSF IgG Synthesis Rate (<=12) mg/24 h CSF VDRL (Negative) IgG (767 - 1590) mg/dL Serum Immunofixation Anti-Nuclear Antibody U 11/06/16 11/06/16 11/06/16 Range/Units 11:17 11:48 12:15 WBC (3.5-10.8) 10^3/ul RBC (4.0-5.4) 10^6/ul Hgb (14.0-18.0) g/dl Hct (42-52) % MCV (80-94) fL MCH (27-31) pg MCHC (31-36) g/dl RDW (10.5-15) % Plt Count (150-450) 10^3/ul MPV (7.4-10.4) um3 Neut % (Auto) (38-83) % Lymph % (Auto) (25-47) % Allen % (Auto) (1-9) % Eos % (Auto) (0-6) % Baso % (Auto) (0-2) % Absolute Neuts (auto) (1.5-7.7) 10^3/ul Absolute Lymphs (auto) (1.0-4.8) 10^3/ul Absolute Monos (auto) (0-0.8) 10^3/ul Absolute Eos (auto) (0-0.6) 10^3/ul Absolute Basos (auto) (0-0.2) 10^3/ul Absolute Nucleated RBC 10^3/ul Nucleated RBC % ESR (0-40) mm/Hr INR (Anticoag Therapy) (0.89-1.11) APTT (26.0-36.3) seconds Sodium (133-145) mmol/L Potassium (3.5-5.0) mmol/L Chloride (101-111) mmol/L Carbon Dioxide (22-32) mmol/L Anion Gap (2-11) mmol/L BUN (6-24) mg/dL Creatinine (0.67-1.17) mg/dL Est GFR ( Amer) (>60) Est GFR (Non-Af Amer) (>60) BUN/Creatinine Ratio (8-20) Glucose (70-100) mg/dL Hemoglobin A1c 6.6 H (Less than 6.0) % Calcium (8.6-10.3) mg/dL Magnesium (1.9-2.7) mg/dL Total Bilirubin (0.2-1.0) mg/dL AST (13-39) U/L ALT (7-52) U/L Alkaline Phosphatase (34-104) U/L Ammonia (16-53) mol/L Total Creatine Kinase (10-223) U/L CK-MB (CK-2) (0.6-6.3) ng/mL Myoglobin (17.4-105.7) ng/mL Troponin I (<0.04) ng/mL C-Reactive Protein (< 5.00) mg/L B-Natriuretic Peptide ( - 100) pg/mL Total Protein (6.4-8.9) g/dL Total Protein (PEP) (6.3 - 7.9) g/dL Albumin 3630 (3.2-5.2) g/dL Albumin (PEP) (3.4-4.7) g/dL Globulin (2-4) g/dL Albumin/Globulin Ratio (1-3) Albumin/Globulin (PEP) Xggis-1-Cljxetkog (0.1-0.3) g/dL Ykmbp-3-Zyduairwx (0.6-1.0) g/dL Ubkm-3-Mdtxcqfq (0.7-1.2) g/dL Gamma Globulins (0.6-1.6) g/dL M-Lukasz 2 g/dL PEP Impression Lipase (11.0-82.0) U/L TSH (0.34-5.60) mcIU/mL Urine Color Yellow Urine Appearance Cloudy Urine pH 6.0 (5-9) Ur Specific [place] 1.013 (1.010-1.030) Urine Protein Negative (Negative) Urine Ketones Negative (Negative) Urine Blood Negative (Negative) Urine Nitrate Negative (Negative) Urine Bilirubin Negative (Negative) Urine Urobilinogen Negative (Negative) Ur Leukocyte Esterase Negative (Negative) Urine Glucose Negative (Negative) Urine Ascorbic Acid * H (Negative) Fluid Source Fluid Volume mL Fluid Color Fluid Appearance Fluid WBC /mcL Fluid RBC /mcL Fluid Tot Cell Count Fluid Neutrophils Fluid Lymphocytes % Fluid Monocytes % Fluid Cell Count Rvw By CSF Cell Count Tube # CSF Glucose (40-70) mg/dL CSF Total Protein (15-45) mg/dL CSF Albumin 22.9 (<=27.0) mg/dL CSF IgG 5.9 (<=8.1) mg/dL Serum IgG/Albumin 0.52 H (<=0.40) CSF IgG/Albumin 0.26 H (<=0.21) CSF IgG Index 0.50 (<=0.85) CSF IgG Synthesis Rate 0.35 (<=12) mg/24 h CSF VDRL Negative (Negative) IgG 1880 H (767 - 1590) mg/dL Serum Immunofixation Anti-Nuclear Antibody U 11/06/16 11/06/16 11/06/16 Range/Units 14:30 14:30 14:30 WBC (3.5-10.8) 10^3/ul RBC (4.0-5.4) 10^6/ul Hgb (14.0-18.0) g/dl Hct (42-52) % MCV (80-94) fL MCH (27-31) pg MCHC (31-36) g/dl RDW (10.5-15) % Plt Count (150-450) 10^3/ul MPV (7.4-10.4) um3 Neut % (Auto) (38-83) % Lymph % (Auto) (25-47) % Allen % (Auto) (1-9) % Eos % (Auto) (0-6) % Baso % (Auto) (0-2) % Absolute Neuts (auto) (1.5-7.7) 10^3/ul Absolute Lymphs (auto) (1.0-4.8) 10^3/ul Absolute Monos (auto) (0-0.8) 10^3/ul Absolute Eos (auto) (0-0.6) 10^3/ul Absolute Basos (auto) (0-0.2) 10^3/ul Absolute Nucleated RBC 10^3/ul Nucleated RBC % ESR 12 (0-40) mm/Hr INR (Anticoag Therapy) (0.89-1.11) APTT (26.0-36.3) seconds Sodium (133-145) mmol/L Potassium (3.5-5.0) mmol/L Chloride (101-111) mmol/L Carbon Dioxide (22-32) mmol/L Anion Gap (2-11) mmol/L BUN (6-24) mg/dL Creatinine (0.67-1.17) mg/dL Est GFR ( Amer) (>60) Est GFR (Non-Af Amer) (>60) BUN/Creatinine Ratio (8-20) Glucose (70-100) mg/dL Hemoglobin A1c (Less than 6.0) % Calcium (8.6-10.3) mg/dL Magnesium (1.9-2.7) mg/dL Total Bilirubin (0.2-1.0) mg/dL AST (13-39) U/L ALT (7-52) U/L Alkaline Phosphatase (34-104) U/L Ammonia (16-53) mol/L Total Creatine Kinase (10-223) U/L CK-MB (CK-2) (0.6-6.3) ng/mL Myoglobin (17.4-105.7) ng/mL Troponin I (<0.04) ng/mL C-Reactive Protein (< 5.00) mg/L B-Natriuretic Peptide ( - 100) pg/mL Total Protein (6.4-8.9) g/dL Total Protein (PEP) 7.0 (6.3 - 7.9) g/dL Albumin (3.2-5.2) g/dL Albumin (PEP) 3.3 L (3.4-4.7) g/dL Globulin (2-4) g/dL Albumin/Globulin Ratio (1-3) Albumin/Globulin (PEP) 0.89 Cayxv-6-Zqrvphhww 0.2 (0.1-0.3) g/dL Bxufn-3-Wyqsidard 0.9 (0.6-1.0) g/dL Nhry-7-Jmgjdhex 0.8 (0.7-1.2) g/dL Gamma Globulins 1.9 H (0.6-1.6) g/dL M-Lukasz 2 1.4 g/dL PEP Impression See comment Lipase (11.0-82.0) U/L TSH (0.34-5.60) mcIU/mL Urine Color Urine Appearance Urine pH (5-9) Ur Specific [place] (1.010-1.030) Urine Protein (Negative) Urine Ketones (Negative) Urine Blood (Negative) Urine Nitrate (Negative) Urine Bilirubin (Negative) Urine Urobilinogen (Negative) Ur Leukocyte Esterase (Negative) Urine Glucose (Negative) Urine Ascorbic Acid (Negative) Fluid Source Fluid Volume mL Fluid Color Fluid Appearance Fluid WBC /mcL Fluid RBC /mcL Fluid Tot Cell Count Fluid Neutrophils Fluid Lymphocytes % Fluid Monocytes % Fluid Cell Count Rvw By CSF Cell Count Tube # CSF Glucose (40-70) mg/dL CSF Total Protein (15-45) mg/dL CSF Albumin (<=27.0) mg/dL CSF IgG (<=8.1) mg/dL Serum IgG/Albumin (<=0.40) CSF IgG/Albumin (<=0.21) CSF IgG Index (<=0.85) CSF IgG Synthesis Rate (<=12) mg/24 h CSF VDRL (Negative) IgG (767 - 1590) mg/dL Serum Immunofixation See comment Anti-Nuclear Antibody 0.3 U Result Diagrams: 11/06/16 11:17 11/06/16 11:17 Lab Statement: Any lab studies that have been ordered have been reviewed, and results considered in the medical decision making process. - Radiology CXR Radiology Interpretation Completed By: Radiologist - HYPERINFLATION. NO ACTIVE CARDIOPULMONARY DISEASE. ED physician has reviewed this radiology report and agrees. - CT Brain CT Interpretation Completed By: Radiologist - NO ACUTE INTRACRANIAL PATHOLOGY. ED physician has reviewed this radiology report and agrees. - EKG 1104 Cardiac Rate: NL - BPM 61 EKG Rhythm: Sinus Rhythm ST Segment: Normal Ectopy: None - Additional Comments Diagnostic Additional Comments: Brain MRI reveals, per radiologist, No restriction of diffusion. No abnormally enhancing lesions are identified. ED physician has reviewed this radiology report and agrees. National Institutes Of Health - NIH Scale Level of Consciousness: Alert/Keenly Responsive Ask Patient the Month and His/Her Age: Both Correct Ask Pt to Open/Close Eyes and Assistant Foreman/Release Non-Paretic Hand: Both Correctly Best Gaze (Only Horizontal Eye Movement): Normal Visual Field Testing: No Visual Loss Facial Paresis-Pt to Smile & Close Eyes or Grimace Symmetry: Normal/Symmetrical Motor Function - Right Arm: No Drift-Holds 10 Seconds Motor Function - Left Arm: No Drift-Holds 10 Seconds Motor Function - Right Leg: No Drift-Holds 10 Seconds Motor Function - Left Leg: No Drift-Holds 10 Seconds Limb Ataxia-Must be out of Proportion to Weakness Present: Absent Sensory (Use Pinprick to Test Arms/Legs/Trunk/Face): Normal Best Language (Describe Picture, Name Items): No Aphasia Dysarthria (Read Several Words): Slurs Some Words Extinction and Inattention: No Abnormality Total Score: 1 Complex Multi-Symp Course/Dx - Diagnoses Provider Diagnoses: Dysarthria, Weakness - Physician Notifications Discussed Care Of Patient With: Robbin Freitas Time Discussed With Above Provider: 12:57 Instructed by Provider To: Other - Consulted Dr. Freitas (neurology) at 1257 who will see the patient in the ED. After seeing patient in the ED, Dr. Freitas recommends an MRI. Consulted Dr. Rosen (hospitalist) at 1713 who agrees to admit. Discharge - Discharge Plan Condition: Stable Disposition: ADMITTED TO [facility] documentation as recorded by the Angélica ahn Alfonso accurately reflects the service I personally performed and the decisions made by me, Mike Wolfe MD.
== END 2016-11-07 16:30 | disposition home or self-care (01) ==
LOC: ED 10:56 → MEDTELE 17:37
PROVIDERS: ADMIT Internal Medicine; ATTEND Internal Medicine
DX: R47.1 Dysarthria and anarthria (principal); R42 Dizziness and giddiness; R47.81 Slurred speech; R26.2 Difficulty in walking, not elsewhere classified; R53.1 Weakness; M50.30 Other cervical disc degeneration, unspecified cervical region; M48.02 Spinal stenosis, cervical region; G62.9 Polyneuropathy, unspecified; Z79.82 Long term (current) use of aspirin; Z95.5 Presence of coronary angioplasty implant and graft; I25.10 Atherosclerotic heart disease of native coronary artery without angina pectoris; Z79.899 Other long term (current) drug therapy
CPT/HCPCS: 36415; 62270; 70450; 70553; 71010; 72141; 80053; 81003; 82140; 82164; 82550; 82553; 82784; 82945; 83036; 83519; 83520; 83690; 83735; 83874; 83880; 84155; 84157; 84165; 84439; 84443; 84481; 84484; 85025; 85610; 85652; 85730; 86038; 86140; 86255; 86256; 86334; 86376; 86592; 86800; 87070; 87205; 88112; 89051; 93005; 95885; 95911; 96374; 99284; A9579; G0378

== ENCOUNTER 2017-09-22 16:56 | Emergency (ER) | payer MEDICAID, MEDICARE, OTHER ==
--- NOTE | 2017-09-22 17:39 | ED ---
Psychiatric Complaint - HPI Summary HPI Summary: This patient is a 72 year old M TIGRE from hospice to ED with a chief complaint of SI voiced at [facility] residence today to Tasha Garner RN. 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 Pt's legs do not move, so pt does not ambulate. Pt's speech is difficult to understand so pt communicates via an ipad tablet that can also speak for pt. Tasha Garner RN from pt's hospice residence called the ED prior to arrival at 1437 and stated that she notified her supervisors that pt told her that he was depressed and he wished he were "already " and that "he had plans to end his life". The patient was evaluated by staff at the hospice residence and sent here via EMS for evaluation of suicidal ideation. The patient communicates through tablet, and states he "did not want to and that he got angry with SW and the new nurse for feeling like they were ganging up on him" (Sentence stored in pt's ipad). The patient "denies completely that he wants to hurt himself or anyone and that he is just very depressed about his situation and the pain it is causing those he loves".(stored sentences in his ipad). Pt states via tablet that he feels it is very reasonable for him to be depressed about his terminal condition. Son corroborates that pt cannot move his legs, would not be able to get out of bed on his own, and son can't imagine how he could actively end his life. Son drove from [facility] to be with pt in the ED and is very supportive. Pt also has a female friend with him. The patient rates the pain 0/ 10 in severity. Symptoms aggravated by nothing. Symptoms alleviated by nothing. Patient reports swelling of his R hand but denies injury or pain, and declines xray or further evaluation. Pt also denies any medical complaints. The patient reports that he does not want to stay in the hospital. Pt has no prior mental health history. Pt is a DNR. Pt's son and pt's female friend are present with pt in the ED. Home Medications Medication Instructions Recorded Confirmed Type Acetaminophen [Acetaminophen Extra 500 - 1,000 mg PO Q6H PRN 09/22/17 09/22/17 History Strength] Ascorbic Acid TAB* [Vitamin C 500 mg PO DAILY 09/22/17 09/22/17 History TAB*] Aspirin EC TAB* [Ecotrin EC Low 81 mg PO DAILY 09/22/17 09/22/17 History Dose 81 MG*] Atropine 1% OPHTH.SARAH* 1 drop BOTH EYES Q4H PRN 09/22/17 09/22/17 History Bisacodyl SUPP* [Dulcolax Supp*] 10 mg NC DAILY PRN 09/22/17 09/22/17 History Cholecalciferol TAB* [Vitamin D 1,000 unit PO DAILY 09/22/17 09/22/17 History TAB*] Cyanocobalamin TAB* [Vitamin B12 2,000 mcg PO DAILY 09/22/17 09/22/17 History TAB*] Docusate CAP* [Colace Cap*] 100 mg PO BID 09/22/17 09/22/17 History Ibuprofen TAB* [Motrin TAB* 600 MG] 600 mg PO Q6H PRN 09/22/17 09/22/17 History LORazepam TAB(*) [Ativan 0.5 MG 0.5 mg PO Q6H PRN 09/22/17 09/22/17 History TAB (*)] Melatonin (NF) 1 mg PO BEDTIME PRN 09/22/17 09/22/17 History Multivitamins/Minerals TAB* 1 tab PO DAILY 09/22/17 09/22/17 History [Theragran/minerals TAB*] Polyethylene Glycol 3350* 17 gm PO DAILY 09/22/17 09/22/17 History [Miralax*] Senna TAB* [Senokot TAB*] 1 - 3 tab PO DAILY PRN 09/22/17 09/22/17 History Tamsulosin CAP* [Flomax CAP*] 0.4 mg PO DAILY 09/22/17 09/22/17 History Ubidecarenone [Coq10] 100 mg PO DAILY PRN 09/22/17 09/22/17 History Vitamin E CAP* 200 unit PO DAILY 09/22/17 09/22/17 History Zinc Gluconate [Zinc] 40 mg PO DAILY 09/22/17 09/22/17 History oxyCODONE TAB* [Roxycodone TAB 5 5 - 10 mg PO Q4H PRN 09/22/17 09/22/17 History mg*] - History Of Current Complaint Chief Complaint: EDMentalHealth Time Seen by Provider: 09/22/17 17:10 Hx Obtained From: Patient - patient is barely able to move and speak, and communicates with a tablet that he can write on and speaks for him, Family/ Chick Grader Onset/Duration: Sudden Onset, Lasting Hours Timing: Constant Severity Initially: Mild Severity Currently: None Character: Depressed, Frustrated Aggravating Factor(s): Nothing Alleviating Factor(s): Nothing Associated Signs And Symptoms: Positive: Appetite Change - pt with terminal ALS Has Suicidal: Reports: Thoughts - Allergies/Home Medications Allergies/Adverse Reactions: Allergies Allergy/AdvReac Type Severity Reaction Status Date / Time MS No Known Drug Allergy Allergy none Verified 11/06/16 10:57 [No Known Drug Allergy] Home Medications: Home Medications Acetaminophen [Acetaminophen Extra Strength] 500 - 1,000 mg PO Q6H PRN 09/22/17 [History Confirmed 09/22/17] Ascorbic Acid TAB* [Vitamin C TAB*] 500 mg PO DAILY 09/22/17 [History Confirmed 09/22/17] Aspirin EC TAB* [Ecotrin EC Low Dose 81 MG*] 81 mg PO DAILY 09/22/17 [History Confirmed 09/22/17] Atropine 1% OPHTH.SARAH* 1 drop BOTH EYES Q4H PRN 09/22/17 [History Confirmed ] Bisacodyl SUPP* [Dulcolax Supp*] 10 mg NC DAILY PRN 09/22/17 [History Confirmed 09/22/17] Cholecalciferol TAB* [Vitamin D TAB*] 1,000 unit PO DAILY 09/22/17 [History Confirmed 09/22/17] Cyanocobalamin TAB* [Vitamin B12 TAB*] 2,000 mcg PO DAILY 09/22/17 [History Confirmed 09/22/17] Docusate CAP* [Colace Cap*] 100 mg PO BID 09/22/17 [History Confirmed 09/22/17] Ibuprofen TAB* [Motrin TAB* 600 MG] 600 mg PO Q6H PRN 09/22/17 [History Confirmed 09/22/17] LORazepam TAB(*) [Ativan 0.5 MG TAB (*)] 0.5 mg PO Q6H PRN 09/22/17 [History Confirmed 09/22/17] Melatonin (NF) 1 mg PO BEDTIME PRN 09/22/17 [History Confirmed 09/22/17] Multivitamins/Minerals TAB* [Theragran/minerals TAB*] 1 tab PO DAILY 09/22/17 [ History Confirmed 09/22/17] Polyethylene Glycol 3350* [Miralax*] 17 gm PO DAILY 09/22/17 [History Confirmed 09/22/17] Senna TAB* [Senokot TAB*] 1 - 3 tab PO DAILY PRN 09/22/17 [History Confirmed ] Tamsulosin CAP* [Flomax CAP*] 0.4 mg PO DAILY 09/22/17 [History Confirmed ] Ubidecarenone [Coq10] 100 mg PO DAILY PRN 09/22/17 [History Confirmed 09/22/17] Vitamin E CAP* 200 unit PO DAILY 09/22/17 [History Confirmed 09/22/17] Zinc Gluconate [Zinc] 40 mg PO DAILY 09/22/17 [History Confirmed 09/22/17] oxyCODONE TAB* [Roxycodone TAB 5 mg*] 5 - 10 mg PO Q4H PRN 09/22/17 [History Confirmed 09/22/17] PMH/Surg Hx/FS Hx/Imm Hx Previously Healthy: No - ALS Endocrine/Hematology History: Reports: Hx Unexplained Bleeding - states occasional blood in stool Denies: Hx Diabetes, Hx Thyroid Disease Cardiovascular History: Reports: Hx Coronary Artery Disease - 2 cardiac stents Denies: Hx Hypertension, Hx Pacemaker/ICD Respiratory History: Denies: Hx Asthma, Hx Chronic Obstructive Pulmonary Disease (COPD) GI History: Denies: Hx Ulcer History: Reports: Hx Kidney Stones Musculoskeletal History: Reports: Hx Arthritis, Hx Back Problems Sensory History: Denies: Hx Contacts or Glasses, Hx Hearing Aid Opthamlomology History: Denies: Hx Contacts or Glasses Neurological History: Reports: Other Neuro Impairments/Disorders - ALS Psychiatric History: Denies: Hx Panic Disorder - Surgical History Surgery Procedure, Year, and Place: past cardiac stents, rca X 2. tonsillectomy at 10 years old. varicose vein removal at age 17 Hx Anesthesia Reactions: No Infectious Disease History: No Infectious Disease History: Denies: Hx Hepatitis, Hx Human Immunodeficiency Virus (HIV), Traveled Outside the [place] in Last 30 Days - Family History Known Family History: Negative: Respiratory Disease - Social History [facility] Alcohol Use: Weekly Alcohol Amount: 2 beers a couple times a week Substance Use Type: Reports: None Smoking Status (MU): Former Smoker Review of Systems Constitutional: Negative Cardiovascular: Negative Respiratory: Negative Gastrointestinal: Negative Positive: Other - swelling of the R hand Skin: Negative Neurological: Negative Psychological: Other - SI All Other Systems Reviewed And Are Negative: Yes Physical Exam - Summary Physical Exam Summary: Appearance: Well-appearing, no pain distress, muscle wasting, can speak some words, communicates with i-pad type tablet, has ALS Skin: Warm, color reflects adequate perfusion, dry Head: Normal Head/Face inspection, atraumatic Eyes: Conjunctiva clear ENT: Normal inspection Neck: Supple, no nodes, no JVD Respiratory: Lungs clear, normal breath sounds, no respiratory distress Cardio: RRR, No murmur, pulses normal, brisk capillary refill Abdomen: Soft, nontender Bowel sounds: Present Musculoskeletal: Muscle wasting, unable to move his legs, arms with full ROM, no calf tenderness, no edema. Psychological: Normal Neuro: Alert O x 4, calm cooperative, muscle tone flaccid in legs, no new deficit, full ROM of arms, speech difficult to understand, communicates by typing. Can transfer, can sit up. Triage Information Reviewed: Yes Vital Signs On Initial Exam: Initial Vitals Temp Pulse Resp BP Pulse Ox 98.7 F 63 16 130/88 99 09/22/17 17:04 09/22/17 17:04 09/22/17 17:04 09/22/17 17:04 09/22/17 17:04 Vital Signs Reviewed: Yes Diagnostics - Vital Signs Vital Signs Temp Pulse Resp BP Pulse Ox 09/22/17 17:04 98.7 F 63 16 130/88 99 - Laboratory Result Diagrams: 09/22/17 17:59 09/22/17 17:59 Lab Statement: Any lab studies that have been ordered have been reviewed, and results considered in the medical decision making process. - EKG 1745 Cardiac Rate: NL - 63 BPM EKG Rhythm: Sinus Rhythm ST Segment: Non-Specific Ectopy: None EKG Interpretation: Low voltage, extremity leads, no acute changes EKG Comparison: No Significant Change - c/w 11/06/16 Re-Evaluation - Re-Evaluation First Eval Re-Evaluation Time: 23:00 Change: Improved Comment: Pt is smiling. Is grateful for the care in the ED and Flex unit. Female friend remains with him. Denies suicidal ideation. Course/Dx - Course Course Of Treatment: 72 yo pt [facility], pt of Dr. Freitas, with dx of ALS which is terminal, given a matter of months to live. Pt had expressed to nurse Tasha Garner RN at the residence that he had plans of ending his life, and wished he were . Pt brought in for evaluation of suicidal ideation. Pt is a DNR. Is accompanied by his son, and a female friend in the ED. Alina Castellanos RN, director of pt services provided collateral. Assessment/Plan: This patient was medically cleared for MHE at 1745. High blood pressure noted. Pt medications reviewed this visit. Care signed out to Dr. Montes at change of shift 11:00pm 09/23/17 with MHE in progress. I spoke with Alina Castellanos RN on her cell phone at 11:15pm, stating that pt would likely go home. She was in agreement with discharge if pt's friend would remain with pt until am, and further care plan could be delineated for pt in the am. Pt to go by wheelchair transport from [place] back to the hospice residence. - Differential Dx/Clinical Impression Differential Diagnosis/HQI/PQRI: Positive: Depression, Suicidal Ideation, Other - elevated blood pressure without diagnosis of hypertension Provider Diagnosis: Elevated blood pressure reading without diagnosis of hypertension, Depression, ALS (amyotrophic lateral sclerosis) Discharge - Sign-Out/Discharge Documenting (check all that apply): Sign-Out Patient Signing out patient TO: Maged Montes - pending MHE Receiving patient FROM: Shahnaz Gage - Discharge Plan Condition: Stable Referrals: Channing Carmona MD [Primary Care Provider] - - Billing Disposition and Condition Condition: STABLE
[2017-09-22 18:09] LABS: ABS Basophils 0 10^3/ul (0-0.2); ABS Eosinophils 0 10^3/ul (0-0.6); ABS Lymphocytes 1.1 10^3/ul (1.0-4.8); ABS Monocytes 0.6 10^3/ul (0-0.8); ABS Neutrophils 4.4 10^3/ul (1.5-7.7); ABS Nucleated RBC 0 10^3/ul; Eosinophil % 0.5 % (0-6); Hematocrit 34 % (42-52); Hemoglobin 12.1 g/dl (14.0-18.0); Lymphocyte % 18.4 % (25-47); Mean Corpuscular HGB Conc 35 g/dl (31-36); Mean Corpuscular Hemoglobin 33 pg (27-31); Mean Corpuscular Volume 93 fL (80-94); Mean Platelet Volume 7.8 um3 (7.4-10.4); Nucleated Red Blood Cells % 0; Platelet Count 187 10^3/ul (150-450); Red Blood Count 3.71 10^6/ul (4.00-5.40); Red Cell Distribution Width 13 % (10.5-15); White Blood Count 6.2 10^3/ul (3.5-10.8)
[2017-09-22 18:21] LABS: Urine Appearance Clear; Urine Blood Negative (Negative); Urine Color Yellow; Urine Ketones Negative (Negative); Urine Protein Negative (Negative); Urine Urobilinogen Negative (Negative)
[2017-09-22 18:28] LABS: EGFR Non-African American 103.4 (>60)
[2017-09-22] MEDS ORDERED: Ibuprofen PED LIQ 100 MG/5 ML UDC PO ONE (20:52)
--- NOTE | 2017-09-22 23:56 | ED ---
Progress - Progress Note Progress Note: This is jimy Jefferson documenting for attending physician Maged Montes M.D. 23:55 -- MHE discussed Pt with Dr. Montes. Recommended Pt discharged to hospice care with Dx of depression. Dr. Montes agrees with plan. - Consult/PCP Time Called: 23:16 Course/Dx - Diagnoses Provider Diagnoses: Elevated blood pressure reading without diagnosis of hypertension, Depression, ALS (amyotrophic lateral sclerosis) Discharge - Sign-Out/Discharge Documenting (check all that apply): Patient Departure - Discharge Plan Condition: Guarded Disposition: HOSPICE MEDICAL FACILITY Referrals: Channing Carmona MD [Primary Care Provider] - - Billing Disposition and Condition Condition: GUARDED Disposition: Hospice Medical Facility
[2017-09-23 00:33] VITALS: BP 114/75
== END 2017-09-23 00:44 | disposition hospice, inpatient (51) ==
LOC: ED 16:56
DX: F32.9 Major depressive disorder, single episode, unspecified (principal); R03.0 Elevated blood-pressure reading, without diagnosis of hypertension; G12.21 Amyotrophic lateral sclerosis; Z79.899 Other long term (current) drug therapy
CPT/HCPCS: 36415; 80053; 80307; 80320; 80329; 81003; 83605; 84443; 85025; 93005; 99285; G0480